=== PATIENT | female | born 1980 | race Caucasian/White ===

== ENCOUNTER 2017-04-26 07:05 | Inpatient (IN) | payer BC ==
[2017-04-26 07:55] VITALS: BMI 27.1
--- NOTE | 2017-04-26 08:14 | OBHP ---
Datetime: 04/26/2017 08:05 IP Adm Impression: Term, intrauterine IP Admit Plan: Admit to unit Admit Comment, IP Provider: 36y/o by ID (46 by pt) [id number] IVF Pergnancy @ 40.3 wks GA YAW 8 c/o decreased movmenets x 2 days and cramping pain 07/20, dneis any lof,vb. Ante: AMA, s/p genettic counseling, s/p amnio (? 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: +Fibroid, dnies hx of anbormal pap, oviaran cyst, sti PMH: denies PSH: deies MED: PNV SHX :negative etoh/tobacc/durgs NKDA A/P 36 y/o @ 40.3 wks GA, IVF , AMA s/p amnio, IOL for decreased movements -admit to L+D -npo, ivf -admissin labs -cerviidl -cot robert oadn efm -analagise prn Pelvic Type - PN: Adequate Extremities - PN: Normal Abdomen - PN: Normal Back - PN: Normal Breast - PN: Normal Lungs - PN: Normal Heart - PN: Normal Thyroid - PN: Normal Neurologic - PN: Normal HEENT - PN: Normal General - PN: Normal Presentation-Admit: Vertex FHR - Baseline A Provider: 135 Membranes, Provider: Intact Contraction Comments Provider: irritablity Gestation - Est Wks by US: 40.3 IP Hx Assessment: The History has been Reviewed and is Current EGA AdmitDate IP: 40.3 Vital Signs Provider: Reviewed; Within Normal Limits IP Chief Complaint: Decreased movement NICHD Variability Prov Fetus A: Moderate 6-25bpm NICHD Accel Fetus A IP Provider: 15X15 NICHD Decel Fetus A IP Provider: None Dilatation, Provider: 0 Effacement, Provider: 0 Station, Provider: -3 Genitourinary Exam: Normal DTRs - PN: Normal
--- NOTE | 2017-04-26 08:31 | OBADHP ---
Datetime: 04/26/2017 08:05 Admit Comment, IP Provider: 36y/o by ID (46 by pt) [id number] IVF Pergnancy @ 40.3 wks GA YAW 8 c/o decreased movmenets x 2 days and cramping pain 07/20, dneis any lof,vb. Ante: AMA, s/p genettic counseling, s/p amnio (? 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, dnies hx of anbormal pap, oviaran cyst, sti PMH: denies PSH: deies MED: PNV SHX :negative etoh/tobacc/durgs NKDA A/P 36 y/o @ 40.3 wks GA, IVF , AMA s/p amnio, IOL for decreased movements -admit to L+D -npo, ivf -admissin labs -cerviidl -cot robert oadn efm -analagise prn Pelvic Type - PN: Adequate Extremities - PN: Normal Abdomen - PN: Normal Back - PN: Normal Breast - PN: Normal Lungs - PN: Normal Heart - PN: Normal Thyroid - PN: Normal Neurologic - PN: Normal HEENT - PN: Normal General - PN: Normal Presentation-Admit: Vertex FHR - Baseline A Provider: 135 Membranes, Provider: Intact Contraction Comments Provider: irritablity Gestation - Est Wks by US: 40.3 IP Hx Assessment: The History has been Reviewed and is Current Vital Signs Provider: Reviewed; Within Normal Limits IP Chief Complaint: Decreased movement NICHD Variability Prov Fetus A: Moderate 6-25bpm NICHD Accel Fetus A IP Provider: [id number] NICHD Decel Fetus A IP Provider: None Dilatation, Provider: 0 Effacement, Provider: 0 Station, Provider: -3 Genitourinary Exam: Normal DTRs - PN: Normal EGA AdmitDate IP: 40.3 IP Adm Impression: Term, intrauterine IP Admit Plan: Admit to unit
[2017-04-26] MEDS: Lactated Ringer's 1,000 ML IV SCH ×2 (08:45→18:08)
[2017-04-26 08:59] LABS: BASO # 0.1 K/uL (0.0-0.2); BASO % 0.8 % (0.0-2.0); EOS % 15.8 % (0.0-4.0); HEMOGLOBIN 11.2 g/dL (11.0-16.0); LYMPH # 1.4 K/uL (1.0-4.3); LYMPH % 21.6 % (20.0-40.0); MEAN CELL VOLUME 76.4 fL (81.0-99.0); MEAN CORPUSCULAR HEMOGLOBIN 24.7 pg (27.0-31.0); MEAN CORPUSCULAR HGB CONC 32.4 g/dL (33.0-37.0); MEAN PLATELET VOLUME 10.7 fL (7.2-11.7); MONO # 0.6 K/uL (0.0-0.8); MONO % 9.1 % (0.0-10.0); NEUT # 3.4 K/uL (1.8-7.0); NEUT % 52.7 % (50.0-75.0); NRBC % 0.1 % (0.0-2.0); RBC 4.53 Mil/uL (3.80-5.20); RED CELL DISTRIBUTION WIDTH 18.9 % (11.5-14.5); WHITE BLOOD COUNT 6.5 K/uL (4.8-10.8)
[2017-04-26] MEDS ORDERED: Sodium Citrate/Citric Acid 15 ml Sol PO ONE (10:15)
--- NOTE | 2017-04-26 10:28 | OBPN ---
Datetime: 04/26/2017 10:22 IP Progress Impression: Non-reassuring heart rate IP Informed Consent Obtain: Section Delivery IP Progress Plan: Deliver- Section Membranes, Provider: Intact Contraction Comments Provider: q 2-5 min irreulgar FHR - Baseline A Provider: 150 Gestation - Est Wks by US: 40.3 Presentation-Admit: Vertex IP Progress Note Comment: pt jessika and examiend with intermitnte decelrations, despite ivh, oxygen, l eft later decumbuti postion cevridil removed with additinal decleration pt counsle don r/b/a/i of conitnued iol vs pltcs. pt opted for pltcs as does not want to try alter [place] or continue with induction process r/b/a/i not lmtied to lbeeding, infection, risk of injuryt to bowel , bladder or other organs dw p atietn VE: closed MEDS: Cervdil premoved A/P 36 y/o @ 40.3 wks GA with Cat II tracing remote from delivery -r/b/a/i ptlcs dw patient -consent obtained -0r/anesthesia aware -cefoxitin -abdominal prep -vasques to gravity -scds -or/anestehis aware Vital Signs Provider: Reviewed; Within Normal Limits FHR Category Provider Fetus A: Category II NICHD Variability Prov Fetus A: Moderate 6-25bpm Dilatation, Provider: 0 Effacement, Provider: 0 Station, Provider: -3 NICHD Decel Fetus A IP Provider: Late; Variable Datetime: 04/26/2017 08:05 NICHD Accel Fetus A IP Provider: [id number]
[2017-04-26] MEDS ORDERED: cefOXitin IV 2 gm in Saline 2 GM/50 ML BAG IVPB ONE (10:29)
[2017-04-26] MEDS ORDERED: Sodium Citrate/Citric Acid 15 ml Sol ONE (10:29)
[2017-04-26] MEDS ORDERED: Morphine 1 mg/ml preservative-free Inj(Duramorph) ONE (10:29)
[2017-04-26] MEDS ORDERED: Oxytocin 20 units in LR 2,000 ML IV ONE (10:30)
[2017-04-26] MEDS ORDERED: cefOXitin 2 GM in Sodium Chloride 0.9% 100 ML IV SCH (11:00)
[2017-04-26] MEDS ORDERED: cefOXitin 2 GM in Sodium Chloride 0.9% 50 ML IV SCH (11:00)
--- NOTE | 2017-04-26 12:35 | OBDS ---
DELIVERY PERSONNEL Delivery Doctor: Cheyenne Azevedo MD Scrub Nurse: Shayna Owens Neurology Manager: Yared Karimi RN Anesthesiologist: martina MATERNAL INFORMATION Delivery Anesthesia: Spinal Maternal Complications: Other Other Maternal Complications: intolerance to labor, recurrent prolonged decels, Cat II tracing , remote from home delivery driver Comments: AMA (patients correct is [birth year] but was entered incorrectly on patients Passport a s 1980, as per patient) H/O Fibroids H/O Hep A (resolved) H/O IVF with donor egg [place] cholesterol level Provider Comments: PLTCS Live male agpras 9, 9 wegiht of 6lbs 8 ounce pediatriicna present for deliveyrn nromal appearing tuers, tubes and ovaries bilaerally LABOR SUMMARY EDC: 04/23/2017 00:00 No. Babies in Womb: 1 Attempted: No Labor Anesthesia: None LABOR INFORMATION Reason for Induction: Other Reason for Induction Other: post date, AMA, IVF Cervical Ripening Agents: Cervidil Oxytocin: N/A Group B Beta Strep: Negative Antibiotics # of Doses: 0 Steroids Given: None Reason Steroids Not Administered: Not Applicable MEMBRANES Membranes Rupture Method: Artificial Rupture of Membranes: 04/26/2017 11:52 Length of Rupture (hrs): 0.02 Amniotic Fluid Color: Clear Amniotic Fluid Amount: Moderate Amniotic Fluid Odor: Normal STAGES OF LABOR Stage 3 hrs: 0 Stage 3 min: 1 CSECTION DELIVERY Primary Indication: Nonreassuring Status CSection Urgency: Elective CSection Incidence: Primary Labor: Labor Elective: Elective CSection Incision: Lower Uterine Transverse BABY A INFORMATION Infant Delivery Date/Time: 04/26/2017 11:53 Method of Delivery: Born in Route : No : N/A Forceps: N/A Vacuum Extraction: N/A Shoulder Dystocia : No SHOULDER DYSTOCIA BABY A Infant Delivery Date/Time: 04/26/2017 11:53 PRESENTATION/POSITION BABY A Presentation: Cephalic Breech Presentation: N/A PLACENTA INFORMATION BABY A Placenta Delivery Time : 04/26/2017 11:54 Placenta Method of Delivery: Manual Removal Placenta Status: Delivered SCORES BABY A Heart Rate 1 min: >100 bpm Resp Effort 1 min: Good Cry Reflex Irritability 1 min: Cough or Sneeze or Pulls Away Muscle Tone 1 min: Active Motion Color 1 min: Body [place], Extremities Blue Resuscitation Effort 1 min: N/A SCORE 1 MIN: 9 Heart Rate 5 min: >100 bpm Resp Effort 5 min: Good Cry Reflex Irritability 5 min: Cough or Sneeze or Pulls Away Muscle Tone 5 min: Active Motion Color 5 min: Body [place], Extremities Blue Resuscitation Effort 5 min: N/A SCORE 5 MIN: 9 INFANT INFORMATION BABY A Gestational Age at Delivery: 40.3 Gestational Status: Term Outcome : Liveborn Infant Condition : Stable Sex: Male IDENTIFICATION/MEDS BABY A ID Band Number: [id number] ID Band Location: Left Leg; Left Arm Sensor Applied: Yes Sensor Number: [id number] Sensor Location : Cord Clamp WEIGHT/LENGTH BABY A Birthweight (gms): 2950 Infant Weight (lb): 6 Infant Weight (oz): 8 Infant Length Inches: 18.75 Length cms: 47.6 CORD INFORMATION BABY A No. Cord Vessels: 3 Nuchal Cord : N/A Cord Blood Taken: Yes Infant Suction: Mouth; Nose
--- NOTE | 2017-04-26 12:39 | PCM.SURG1 ---
Surgeon's Initial Post Op Note - Surgeon's Notes Surgeon: Crystal Azevedo MD Laminator Hand: Johan Aleman MD Type of Anesthesia: Spinal Pre-Operative Diagnosis: Term intrauterine pregnnayc, IVF, Category II tracing remote from delivery Operative Findings: live male infant apgrs 9,9 weight of 6lbs 8 ounces. normal appearing uteurs, tubes and ovaries bilatearlly, graduate engineer present for delivery. Dr Johan Aleman was surgical assiatn and present for entire delivery adn enssential in gaining entry, retraciton, expsoure, holing bladder blade, ehlping to delivery infant, clsing all layers. Post-Operative Diagnosis: same as above Operation Performed: primary low transverse cesearean section Specimen/Specimens Removed: placenta Estimated Blood Loss: EBL {In ML}: 800 Blood Products Given: N/A Drains Used: No Drains Post-Op Condition: Good Date of Surgery/Procedure: 04/26/17 Time of Surgery/Procedure: 11:50
[2017-04-26] MEDS: Simethicone 80 mg Chewtab PO SCH ×3 (16:39→22:05)
--- NOTE | 2017-04-27 00:24 | OP ---
PROCEDURE DATE: 04/26/2017 SURGEON: Crystal Azevedo MD PLAY WRITER: Johan Aleman MD TYPE OF ANESTHESIA: Spinal. PREOPERATIVE DIAGNOSIS: Term intrauterine , ACOG category II tracing, remote from delivery. POSTOPERATIVE DIAGNOSIS: Term intrauterine , ACOG category II tracing, remote from delivery. OPERATIVE FINDINGS: Live male infant, Apgars 9 and 9, weight is 6 pounds 8 ounces, normal-appearing uterus, tubes, and ovaries bilaterally. Psychology Associate present for delivery. Dr. Johan Aleman, the surgical consultant, was present for the entire delivery and was essential in gaining entry, retraction, exposure, holding the bladder blade, helping to deliver the infant, closing all layers. OPERATION PERFORMED: Primary low transverse section. SPECIMEN REMOVED: Placenta. ESTIMATED BLOOD LOSS: 800 mL. BLOOD PRODUCTS: None. COMPLICATIONS: None. DESCRIPTION OF PROCEDURE: The patient is a 36 by documentation, 46-year-old G8, P1 at 40 weeks and 3 days, admitted with decreased movement. Cervidil was placed for induction of labor with category II tracing despite fluid resuscitation, oxygen, repositioning in left lateral position, and removing the Cervidil. Risks, benefits, alternatives, indications of continued induction versus primary low transverse section was discussed with the patient. Risks, benefits, and alternatives were discussed. Consent was obtained. The patient was transferred to the operating room. The patient was taken to the operating room where she was given spinal anesthesia, and once it was found to be adequate, she was placed on the operating table in the dorsal supine position. The patient was then prepped and draped in the usual sterile fashion. Time-out confirmed correct patient and correct procedure. A Pfannenstiel skin incision was made with a scalpel and carried down to the underlying layer of the fascia with the Bovie. The fascia was incised in the midline and the incision was extended laterally with Tierney scissors. The inferior aspect of the fascial incision was grasped with Allis and Kelly clamps and the underlying rectus muscles dissected off bluntly. Attention was then turned to the inferior aspect in a similar fashion, which was grasped with Allis and Kelly clamps and the underlying rectus muscles were dissected off bluntly. The rectus muscle was then bluntly in the midline. The peritoneum was identified and entered in the clear space. The incision was extended laterally and superiorly until there was good visualization of the bladder. The lower end of the Neri was then inserted. The lower uterine segment was incised in a transverse fashion. The uterine incision was extended laterally bluntly. Amniotic membranes were then ruptured and clear fluid noted. The surgeon's hand entered the uterine cavity. Infant's head was delivered atraumatically followed by delivery of the shoulders, followed by delivery of body. Both oral and nasal passages of the baby were bulb suctioned. Umbilical cord was clamped and cut. Baby was handed off to the awaiting die maker electronic. Cord blood and cord gases were collected and sent x2. The placenta was then delivered manually. The uterus was exteriorized while cleared of clots and debris and the uterine incision was repaired with 0-Vicryl in a running continuous locked fashion. A second layer of the same suture was used to close the uterus in a running imbricated manner. The uterus was then returned to the abdomen. There were normal ovaries and tubes with good hemostasis at the uterine incision site. The peritoneum was reapproximated with 2-0 chromic in a running continuous fashion. The rectus was reapproximated and closed with 2-0 chromic in an interrupted manner. The fascia was reapproximated and closed with 0-Vicryl in a running continuous fashion, and the skin was reapproximated and closed with 4-0 Monocryl in a running subcuticular fashion. At the end of the procedure, all needles, sponge, and instrument counts were noted to be correct x2. The patient tolerated the procedure well and was transferred to the recovery room in stable condition. Crystal Azevedo MD
[2017-04-27] MEDS: Oxycodone/Acetaminophen 5/325 mg Tab PO PRN ×4 (06:03→23:02)
--- NOTE | 2017-04-27 06:23 | OBPPN ---
Datetime: 04/27/2017 06:19 PP Pain Prov: Within normal limits PP Nausea Prov: Denies PP Flatus Prov: Yes PP BM Prov: No PP Breasts Prov: Normal PP Heart Prov: Normal PP Lungs Prov: Normal PP Abdomen/Uterus Prov: Normal PP Lochia Prov: Normal PP Vulva/Perineum Prov: Normal PP CVA Tenderness Prov: Normal PP Extremities Prov: Normal PP Impression Prov: Normal progression PP Plan Prov: Continue present management PP Progress Note Prov: pt seen and examiend adn reports pain is contrllled. pt denies any headaches, blury visoin, ruq/epigastric pain. Pt is breast feeding and deines any fevers, chills, nause, vomiti ng, cp, sob VS see above GEN: NAD, AA Ox 3 RESP: CTAB/l CVS: RRR< +S1/S2 ABD: Soft, Appropriatly TTP over incsion ,no guarding no rebound tenderness, no rigidty, +BS Incsion C/D/I healing wlel No uterien tendneres VE; Minimal lochia non fouls semlling A/P s/p PLTCS POD #1 doing well -dc vasques -f/u am labs -advance diet as tolerated -encourge ambuatin out of bed, breast feeding -bowel regimen IP PP Procedures: None Vital Signs Provider PP: Reviewed; Within Normal Limits
[2017-04-27 08:11] LABS: BASO # 0.1 K/uL (0.0-0.2); BASO % 0.6 % (0.0-2.0); EOS # 0.6 K/uL (0.0-0.7); EOS % 5.1 % (0.0-4.0); HEMOGLOBIN 9.8 g/dL (11.0-16.0); LYMPH # 1.5 K/uL (1.0-4.3); LYMPH % 11.9 % (20.0-40.0); MEAN CELL VOLUME 75.9 fL (81.0-99.0); MEAN CORPUSCULAR HEMOGLOBIN 24.7 pg (27.0-31.0); MEAN CORPUSCULAR HGB CONC 32.6 g/dL (33.0-37.0); MEAN PLATELET VOLUME 9.4 fL (7.2-11.7); MONO # 0.9 K/uL (0.0-0.8); MONO % 7.3 % (0.0-10.0); NEUT # 9.6 K/uL (1.8-7.0); NEUT % 75.1 % (50.0-75.0); RBC 3.96 Mil/uL (3.80-5.20); RED CELL DISTRIBUTION WIDTH 18.2 % (11.5-14.5)
[2017-04-27 08:12] LABS: WHITE BLOOD COUNT 12.8 K/uL (4.8-10.8)
[2017-04-27 08:17] LABS: ALB/GLOB RATIO 0.9 (1.0-2.1); ALBUMIN 2.7 g/dL (3.5-5.0); ALT/SGPT 36 U/L (9-52); AST/SGOT 37 U/L (14-36); BLOOD UREA NITROGEN 10 mg/dL (7-17); CALCIUM 8.2 mg/dl (8.6-10.4); GFR AFRICAN-AMERICAN > 60; GFR NON-AFRICAN AMERICAN > 60
[2017-04-27] MEDS: Simethicone 80 mg Chewtab PO SCH ×4 (10:35→22:58)
[2017-04-27] MEDS: Prenatal Multivit/Folic Acid/Iron Tab PO SCH (10:36)
[2017-04-27] MEDS ORDERED: Bisacodyl 5mg EC Tab PO ONE (12:35)
--- NOTE | 2017-04-28 06:32 | OBPPN ---
Datetime: 04/28/2017 06:30 PP Pain Prov: Within normal limits PP Nausea Prov: Denies PP Flatus Prov: Yes PP BM Prov: No PP Breasts Prov: Normal PP Heart Prov: Normal PP Lungs Prov: Normal PP Abdomen/Uterus Prov: Normal PP Lochia Prov: Normal PP Vulva/Perineum Prov: Normal PP CVA Tenderness Prov: Normal PP Extremities Prov: Normal PP C/S Incision Prov: Normal PP Progress Prov: Normal PP Impression Prov: Normal progression PP Plan Prov: Continue present management PP Progress Note Prov: pt seen and examiend adn reports pain is contrllled. pt denies any headaches, blury visoin, ruq/epigastric pain. Pt is breast feeding and deines any fevers, chills, nause, vomiti ng, cp, sob VS see above GEN: NAD, AA Ox 3 RESP: CTAB/l CVS: RRR< +S1/S2 ABD: Soft, Appropriatly TTP over incsion ,no guarding no rebound tenderness, no rigidty, +BS Incsion C/D/I healing wlel No uterien tendneres, fundus firm, below level of umbiu s VE; Minimal lochia non fouls semlling A/P s/p PLTCS POD #2 doing well regular diet -encourge ambuatin out of bed, breast feeding -bowel regimen -antic[place] dc in am IP PP Procedures: None Vital Signs Provider PP: Reviewed; Within Normal Limits
[2017-04-28] MEDS: Oxycodone/Acetaminophen 5/325 mg Tab PO PRN ×2 (08:47→17:38)
[2017-04-28] MEDS: Simethicone 80 mg Chewtab PO SCH ×4 (09:49→22:10)
[2017-04-28] MEDS: Prenatal Multivit/Folic Acid/Iron Tab PO SCH (09:49)
[2017-04-29] MEDS: Oxycodone/Acetaminophen 5/325 mg Tab PO PRN (07:55)
[2017-04-29 08:43] VITALS: BP 119/74; PULSE 95; RESP 18; TEMP 97.9; O2SAT 100
[2017-04-29] MEDS: Prenatal Multivit/Folic Acid/Iron Tab PO SCH (09:37)
[2017-04-29] MEDS: Simethicone 80 mg Chewtab PO SCH (09:38)
--- NOTE | 2017-04-29 16:35 | OBDCSUM ---
Datetime: 04/29/2017 10:35 Discharged to, Provider: Home Follow up at, Provider: Dr. Crystal Azevedo Disch Instr Activity: Normal activity Disch Instr Diet: Regular Discharge Diet restrict Prov: none Discharge Instructions, Provider: Routine instructions given Discharge Diagnosis, Provider: Term Delivered Discharge Time: 04/29/2017 13:00 Follow up in weeks, Provider: May 06, 2017 Disch Referrals: None Contraception discussed, Prov: Yes Disch Activity Restrictions: No exercising; No lifting; No driving; Minimize walking; Minimize stair -climbing; No sexual activity; Nothing in vagina - [place], tampons, douche Discharge Comment, Provider: precatin givne rtp 1 week Contraception after Delivery: Not Planning to Use
--- NOTE | 2017-04-29 16:35 | OBPPN ---
Datetime: 04/29/2017 16:33 PP Pain Prov: Within normal limits PP Nausea Prov: Denies PP Flatus Prov: Yes PP BM Prov: No PP Breasts Prov: Normal PP Heart Prov: Normal PP Lungs Prov: Normal PP Abdomen/Uterus Prov: Normal PP Lochia Prov: Normal PP Vulva/Perineum Prov: Normal PP CVA Tenderness Prov: Normal PP Extremities Prov: Normal PP C/S Incision Prov: Normal PP Progress Prov: Normal PP Impression Prov: Normal progression PP Plan Prov: Continue present management PP Progress Note Prov: pt seen and examiend adn reports pain is contrllled. pt denies any headaches, blury visoin, ruq/epigastric pain. Pt is breast feeding and deines any fevers, chills, nause, vomiti ng, cp, sob VS see above GEN: NAD, AA Ox 3 RESP: CTAB/l CVS: RRR< +S1/S2 ABD: Soft, Appropriatly TTP over incsion ,no guarding no rebound tenderness, no rigidty, +BS No uterien tendneres, fundus firm, below leve of umbilucs VE; Minimal lochia non fouls semlling incisonc c/d/i A/P s/p PLTCS PPD #3 doing well dc home rto 1 week perciotan givn IP PP Procedures: None Vital Signs Provider PP: Reviewed; Within Normal Limits
== END 2017-04-29 13:40 | disposition home or self-care (01) | DRG 766 ==
LOC: C.EROB 07:05 → C.ER 07:05 → C.4D 08:13 → C.4M 14:30
PROVIDERS: ADMIT Obstetrics & Gynecology; ATTEND Obstetrics & Gynecology
PROC: 10D00Z1 Extraction of Products of Conception, Low, Open Approach (ICD-10-PCS; principal; 2017-04-26)
PROC: 3E0P7VZ Introduction of Hormone into Female Reproductive, Via Natural or Artificial Opening (ICD-10-PCS; 2017-04-26)
DX: O36.8130 Decreased fetal movements, third trimester, not applicable or unspecified (principal); O76 Abnormality in fetal heart rate and rhythm complicating labor and delivery; Z3A.40 40 weeks gestation of pregnancy; Z37.0 Single live birth